=== PATIENT | female | born 1990 | race Caucasian/White ===

== ENCOUNTER 2016-11-23 03:00 | Emergency (ER) | payer OTHER | END 2016-11-23 04:35 | disposition home or self-care (01) | LOC: H.EDERROR 03:00 → H.ER 03:00 → H.EDERROR 04:35 | DX: H11.32 Conjunctival hemorrhage, left eye (principal); S05.02XA Injury of conjunctiva and corneal abrasion without foreign body, left eye, initial encounter ==

== ENCOUNTER 2017-02-13 01:25 | Emergency (ER) | payer OTHER ==
[2017-02-13 01:55] VITALS: BP 110/72; PULSE 64; RESP 18; TEMP 97.5; O2SAT 100
[2017-02-13] MEDS ORDERED: Olopatadine 0.1% Opht SOLN OS STA (02:08)
--- NOTE | 2017-02-13 02:11 | ED PDOC ---
HPI: Eye Injury/Pain Time Seen by Provider: 02/13/17 01:45 Chief Complaint (Nursing): Eye Problem Chief Complaint (Provider): left eye irritation History Per: Patient History/Exam Limitations: no limitations Onset/Duration Of Symptoms: Mins Current Symptoms Are (Timing): Still Present Quality: Burning Associated Symptoms: Swelling Additional History Per: Patient Additional Complaint(s): 26 y/o female presents for eval of acute onset left eye irritation x 30 mins. Patient states she was laying down trying to go to sleep when she felt her eye to burn with a "jelly-like" structure in the outer corner. Associated lower lid swelling. Denies known allergen/irritant, drainage from eye, nasal drainage , cough, congestion, contact lens use. Past Medical History Reviewed: Historical Data, Nursing Documentation, Vital Signs Vital Signs: Last Vital Signs Temp 97.5 F L 02/13/17 01:51 Pulse 64 02/13/17 01:51 Resp 18 02/13/17 01:51 BP 110/72 02/13/17 01:51 Pulse Ox 100 02/13/17 01:51 - Medical History PMH: No Chronic Diseases - Family History Family History: States: Unknown Family Hx - Home Medications Home Medications: Ambulatory Orders Medication Instructions Recorded Olopatadine 0.1% Opht [Patanol 5 1 drop OS BID #1 bottle 02/13/17 Ml] - Allergies Allergies/Adverse Reactions: Allergies Allergy/AdvReac Type Severity Reaction Status Date / Time No Known Allergies Allergy Verified 02/13/17 01:51 Review of Systems ROS Statement: Except As Marked, All Systems Reviewed And Found Negative Eyes: Positive for: Eyelid Inflammation, Redness Physical Exam - Reviewed Nursing Documentation Reviewed: Yes Vital Signs Reviewed: Yes - Physical Exam Appears: Positive for: Well, Non-toxic, No Acute Distress Head Exam: Positive for: ATRAUMATIC, NORMAL INSPECTION, NORMOCEPHALIC Skin: Positive for: Normal Color Eye Exam: Positive for: Normal appearance, EOMI, PERRL, Conjunctival injection ( left. No prurulent drainage.), Other (left lateral chemosis with mild lower lid swelling. ). Negative for: Nystagmus, Periorbital swelling, Periorbital tenderness Neurologic/Psych: Positive for: Alert, Oriented - ECG O2 Sat by Pulse Oximetry: 100 - Progress ED Course And Treament: Benadryl PO Left eye anesthesized with 1 drop tetracaine; fluro stain reveals no uptake Patient educated on findings, given first dose Patanol drop in ED, provided with rx for same. Advised follow up optho. Return to ED for worsening/concerning symptoms. Disposition - Clinical Impression Clinical Impression: Allergic conjunctivitis - Patient ED Disposition Is Patient to be Admitted: No Counseled Patient/Family Regarding: Studies Performed, Diagnosis, Need For Followup - Disposition Referrals: Cricket Rutherford MD [Staff Provider] - Disposition: Routine/Home Disposition Time: 02:37 Condition: STABLE Additional Instructions: Follow up with [facility] as directed. Return to ED for worsening/concerning symptoms. Instructions: Conjunctivitis (ED)
== END 2017-02-13 03:05 | disposition home or self-care (01) ==
LOC: H.ER 01:25
DX: H10.12 Acute atopic conjunctivitis, left eye (principal)